=== PATIENT | female | born 1945 | race Caucasian/White ===

== ENCOUNTER 2018-12-12 07:18 | Emergency (ER) | payer MEDICARE ==
[2018-12-12 07:40] VITALS: BP 135/50
--- NOTE | 2018-12-12 07:56 | UC ---
Back Pain HPI - HPI Summary HPI Summary: 73 year old female presents with c/o right sided lower back pain that radiates down her right leg since she awoke yesterday morning. She states she has a hx of low back pain but it is usually on the left side of her back. Denies any recent injury, trauma nor fall. Denies urinary symptoms nor fever. Had x-rays taken of her lower back 2 mos ago. - History of Current Complaint Chief Complaint: UCBackPain Stated Complaint: LOWER BACK/RIGHT HIP/LEG PAIN Time Seen by Provider: 12/12/18 07:53 Onset/Duration: Sudden Onset Timing: Constant, Lasting Days - One day Pain Intensity: 8 Character: Aching, Throbbing Aggravating Factor(s): Movement, Bending, Walking Alleviating Factor(s): Nothing Associated Signs And Symptoms: Positive: Pain with Weight Bearing - Radiates down right leg from right buttock, down lateral leg to lateral ankle.. Negative : Swelling, Redness, Fever, Weakness, Tingling, Abdominal Pain, Flank Pain, Bladder Incontinence - Risk Factors Cauda Equina Risk Factors: Negative - Allergies/Home Medications Allergies/Adverse Reactions: Allergies Allergy/AdvReac Type Severity Reaction Status Date / Time duloxetine [From Cymbalta] Allergy Palpitation Verified 12/12/18 07:41 s erythromycin base AdvReac GI Upset Verified 12/12/18 07:41 [From Erythrocin] Penicillins AdvReac See Comment Verified 12/12/18 07:41 Home Medications: Home Medications Allopurinol TAB* [Zyloprim 300 MG TAB*] 300 mg PO DAILY 12/12/18 [History Confirmed 12/12/18] Colchicine* [Colcrys*] 0.6 mg PO DAILY PRN 12/12/18 [History Confirmed 12/12/18] Furosemide TAB* [Lasix TAB*] 40 mg PO DAILY 12/12/18 [History Confirmed 12/12/18 ] Levothyroxine TAB* [Synthroid TAB*] 125 mcg PO 0800 12/12/18 [History Confirmed 12/12/18] Losartan TAB* [Cozaar TAB*] 25 mg PO DAILY 12/12/18 [History Confirmed 12/12/18] Naproxen [Naprosyn 500 mg tab] 500 mg PO DAILY 12/12/18 [History Confirmed 12/12] Ponder-3/Dha/Epa/Fish Oil [Fish Oil 1,000 mg Softgel] 1,000 mg PO DAILY 12/12/18 [History Confirmed 12/12/18] PARoxetine HCL TAB* [Paxil TAB*] 20 mg PO DAILY 12/12/18 [History Confirmed ] Pravastatin Sodium 20 mg PO DAILY 12/12/18 [History Confirmed 12/12/18] Rosuvastatin Calcium 20 mg PO DAILY 12/12/18 [History Confirmed 12/12/18] metFORMIN* [Glucophage 500 MG TAB *] 500 mg PO BID 12/12/18 [History Confirmed 12/12/18] PMH/Surg Hx/FS Hx/Imm Hx Previously Healthy: Yes Endocrine History: Diabetes, Hypothyroidism - Surgical History Surgical History: Yes Surgery Procedure, Year, and Place: L knee, appy, gallbladder, hernia, - Family History Known Family History: Positive: Non-Contributory - Social History Alcohol Use: Rare Substance Use Type: None Smoking Status (MU): Never Smoked Tobacco Review of Systems All Other Systems Reviewed And Are Negative: Yes Constitutional: Negative: Fever, Chills, Fatigue Skin: Negative: Rash, Bruising Eyes: Negative: Eye Redness, Photophobia ENT: Negative: Sore Throat, Ear Ache, Sinus Congestion Respiratory: Negative: Shortness Of Breath, Cough Cardiovascular: Negative: Palpitations, Chest Pain Gastrointestinal: Negative: Vomiting, Diarrhea, Nausea Genitourinary: Negative: Dysuria, Hematuria, Frequency, Urgency Motor: Negative: Weakness Neurovascular: Negative: Decreased Sensation, Decreased Pulses Musculoskeletal: Positive: Decreased ROM - secondary to right lower leg pain. Negative: Calf Tenderness Neurological: Negative: Headache, Weakness, Paresthesia Psychological: Negative: Anxious, Depressed Is Patient Immunocompromised?: No Physical Exam Triage Information Reviewed: Yes Appearance: Pain Distress, Obese Vital Signs: Initial Vital Signs Temp 97.9 F 12/12/18 07:31 Pulse 58 12/12/18 07:31 Resp 18 12/12/18 07:31 BP 135/50 12/12/18 07:31 Pulse Ox 96 12/12/18 07:31 Vital Signs Reviewed: Yes Eyes: Positive: Conjunctiva Clear ENT: Positive: Normal ENT inspection Neck: Positive: Supple, Nontender, No Lymphadenopathy Respiratory: Positive: Lungs clear, Normal breath sounds. Negative: Crackles, Rhonchi, Wheezing Cardiovascular: Positive: RRR, No Murmur Abdomen Description: Positive: Nontender, Soft Musculoskeletal: Positive: Strength Intact, ROM Intact, Other: - tenderness over right sciatic region, strength equal bilat. Neurological: Positive: Muscle Tone Normal Skin: Negative: Rashes Back Pain Course/Dx - Course Course Of Treatment: X-ray report of L-S spine done 08/13/18 reviewed and showed grad 2 L5-S1 spondylolisthesis, osteopenia and spondylosis. Since imaging was 4 mos ago and no acute injury, no further imaging was performed today. - Differential Dx/Diagnosis Differential Diagnosis/HQI/PQRI: Arthritis, Herniated Disc Provider Diagnosis: Sciatica, right side Discharge - Sign-Out/Discharge Documenting (check all that apply): Patient Departure All imaging exams completed and their final reports reviewed: No Studies - Discharge Plan Condition: Stable Disposition: HOME Prescriptions: Meloxicam 7.5 mg PO DAILY PRN #15 tablet PRN Reason: Pain - Moderate raNITIdine HCl [Ranitidine HCl] 150 mg PO DAILY #15 capsule Patient Education Materials: Sciatica (ED) Referrals: Ramon Alves PA [Primary Care Provider] - Additional Instructions: Wait at least 8 hours before starting meloxicam. Take your omeprazole daily for stomach protection while taking meloxicam. Physical Therapy recommended. Follow- up with your Primary Care Physician. - Billing Disposition and Condition Condition: STABLE Disposition: Home
[2018-12-12] MEDS ORDERED: Ketorolac *IM* INJ* 60 MG/2 ML VIAL IM ONE (08:16)
== END 2018-12-12 09:00 | disposition home or self-care (01) ==
LOC: UCCORT 07:18
DX: M54.31 Sciatica, right side (principal); E11.9 Type 2 diabetes mellitus without complications; I10 Essential (primary) hypertension; Z79.84 Long term (current) use of oral hypoglycemic drugs
CPT/HCPCS: 96372; 99212; G0463; J1885

== ENCOUNTER 2019-09-20 06:20 | Observation (INO) ==
[~2019-09-20 06:20] MED LIST: Lactated Ringers 1000 ml BAG 1,000 ML IV SCH
[2019-09-20] MEDS ORDERED: Buffered Lidocaine 1% SYRIN 1 ml INTRADERM ONE (06:35)
[2019-09-20] MEDS ORDERED: Clindamycin 900 MG/D5W BAG 900 MG/50 ML BAG IVPB ONE (06:36)
[2019-09-20] MEDS ORDERED: ROPIVACAINE 5 MG/ML 30 ML BTL (0.5%) ONE ×2 (07:15→07:35)
[2019-09-20] MEDS ORDERED: Dexmedetomidine 200 mcg/2 ml 2 ml VIAL (200 mcg) ONE (07:35)
[2019-09-20] MEDS ORDERED: fentaNYL 100 mcg/2 ml 50 MCG/ML VIAL ONE ×2 (07:35→10:05)
[2019-09-20] MEDS ORDERED: Midazolam 2 mg/2 ml VIAL 1 mg/ml 2 ml VIAL (2 mg) ONE ×2 (07:35→08:20)
[2019-09-20] MEDS ORDERED: Lidocaine 2% PF 5 ML VIAL ONE ×3 (07:35→10:12)
[2019-09-20] MEDS ORDERED: Propofol 10 MG/ML 20 ML BTL ONE (08:06)
[2019-09-20] MEDS ORDERED: Succinylcholine 200 mg VIAL 20 mg/ml 10 ml VIAL (200 mg) ONE (08:06)
[2019-09-20] MEDS ORDERED: Rocuronium 50 mg VIAL 10 mg/ml 5 ml VIAL (50 mg) ONE (08:13)
[2019-09-20] MEDS ORDERED: EPHEDrine (Pressors) 50 MG/ML VIAL ONE (08:14)
[2019-09-20] MEDS ORDERED: Dexamethasone IV 4 MG/ML VIAL 1 ml VIAL ONE (08:26)
[2019-09-20] MEDS ORDERED: Levalbuterol 0.63MG/3ML NEB UNIT OF USE INH PRN (09:03)
[2019-09-20] MEDS ORDERED: fentaNYL 100 mcg/2 ml 50 MCG/ML VIAL IV PRN (09:03)
[2019-09-20] MEDS ORDERED: DiMENhydriNATE IV 50 mg/ml 1 ml VIAL IV PUSH PRN (09:03)
[2019-09-20] MEDS ORDERED: Naloxone 0.4 mg VIAL 0.4 mg/ml 1 ml VIAL IV PRN (09:03)
[2019-09-20] MEDS ORDERED: Ondansetron 4 mg VIAL 2 MG/ML 2 ml VIAL ONE (09:57)
[2019-09-20] MEDS ORDERED: Acetaminophen IV 1 GM/100ML 100 ML ONE (09:57)
[2019-09-20] MEDS ORDERED: Metoclopramide 5 MG/ML VIAL (10 mg) ONE (09:57)
[2019-09-20] MEDS ORDERED: Levalbuterol HFA INHALER MDI ONE (10:10)
[2019-09-20] MEDS ORDERED: Magnesium Hydroxide LIQ 30 ML UDC PO PRN (10:55)
[2019-09-20] MEDS ORDERED: Ondansetron ODT 4 mg TAB 4 MG TAB PO PRN (10:55)
[2019-09-20] MEDS ORDERED: Lactulose 30 ml UDC PO PRN (10:55)
[2019-09-20] MEDS ORDERED: Ondansetron 4 mg VIAL 2 MG/ML 2 ml VIAL IV PRN (10:55)
[2019-09-20] MEDS ORDERED: diPHENhydraMINE IV 50 MG/ML 1 ml VIAL (BENADRYL) IV PRN (10:55)
[2019-09-20] MEDS ORDERED: diPHENhydraMINE 25 mg TAB PO PRN (10:55)
[2019-09-20] MEDS ORDERED: A lbuterol Hfa (PREPAK) 1 MDI - ED TAKE HOME DISPENSING ONLY INHH PRN (11:02)
[2019-09-20] MEDS ORDERED: Albuterol 2.5mg/3 ml (0.083%) NEB.SOLN INH PRN (11:08)
[2019-09-20] MEDS ORDERED: Dextrose 50% Syringe 50 ml 25 GM/50 ML SYRINGE IV PUSH PRN (11:08)
[2019-09-20] MEDS: Lactated Ringers 1000 ml BAG 1,000 ML IV SCH ×2 (12:30→23:15)
[2019-09-20] MEDS: oxyCODONE/Acetamin 5/325 mg TAB PO PRN ×2 (14:55→21:55)
[2019-09-20] MEDS: Clindamycin 600 MG/NS BAG(*) 600 MG/50 ML BAG IV SCH (16:51)
[2019-09-20] MEDS: Magnesium Hydroxide LIQ 30 ML UDC PO SCH (21:55)
[2019-09-21] MEDS: Clindamycin 600 MG/NS BAG(*) 600 MG/50 ML BAG IV SCH ×2 (00:35→07:45)
[2019-09-21] MEDS: oxyCODONE/Acetamin 5/325 mg TAB PO PRN ×4 (01:24→14:59)
[2019-09-21 06:18] LABS: Hematocrit 30 % (35-47); Hemoglobin 10.3 g/dL (12.0-16.0); Mean Platelet Volume 8.6 fL (7.4-10.4); Platelet Count 175 10^3/uL (150-450)
[2019-09-21 06:51] LABS: BUN/Creatinine Ratio 24.8 (8-20); Calcium 8.4 mg/dL (8.6-10.3); EGFR African American 62.2 (>60); EGFR Non-African American 51.4 (>60); Potassium 4.2 mmol/L (3.5-5.0)
[2019-09-21] MEDS: Magnesium Hydroxide LIQ 30 ML UDC PO SCH (09:00)
[2019-09-21] MEDS ORDERED: Vitamin THERAPEUTIC TAB PO SCH (09:00)
[2019-09-21 11:26] VITALS: BP 97/42
== END 2019-09-21 16:15 | disposition home or self-care (01) ==
LOC: OR 06:20 → SSU 06:20
PROVIDERS: ADMIT Orthopaedic Surgery Adult Reconstructive Orthopaedic Surgery; ATTEND Hospitalist